=== PATIENT | male | born 1960 | race Caucasian/White ===

== ENCOUNTER 2019-10-25 11:21 | Emergency (ER) | payer BC ==
--- NOTE | 2019-10-25 12:23 | RAD ---
RIGHT HAND 3 VIEWS: Date: 10/25/19 HISTORY: Fall with injury. FINDINGS: Carpals appear intact. Mild degenerative change at the first carpometacarpal. Mild degenerative change at the first MCP joint. 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 No acute fracture identified. IMPRESSION: No evidence of acute fracture. POS: [facility]
--- NOTE | 2019-10-25 12:24 | RAD ---
LEFT FOREARM 2 VIEWS: Date: 10/25/19 HISTORY: Fall with injury. FINDINGS: Mild degenerative change at the elbow. No fracture identified. IMPRESSION: No evidence of acute fracture. POS: [facility]
--- NOTE | 2019-10-25 12:24 | RAD ---
RIGHT FOREARM 2 VIEWS: Date: 10/25/19 HISTORY: Fall with injury. FINDINGS: Degenerative changes at elbow and mild degenerative changes at wrist. No evidence of fracture. IMPRESSION: No acute fracture identified. POS: [facility]
--- NOTE | 2019-10-25 12:25 | RAD ---
LEFT HAND THREE VIEWS: HISTORY: Fall with injury. FINDINGS: Degenerative change at the first carpometacarpal joint. Mild degenerative change at the first MCP reji nt and IP joints. No evidence of acute fracture identified. IMPRESSION: No evidence of acute fracture. POS: [facility]
[2019-10-25] MEDS ORDERED: HYDROcodone/Acetaminophen 7.5/325 mg Tablet ONE (12:27)
== END 2019-10-25 14:24 | disposition home or self-care (01) ==
LOC: ERS 11:21
DX: M79.632 Pain in left forearm (principal); M79.631 Pain in right forearm; M79.642 Pain in left hand; M79.641 Pain in right hand; M25.532 Pain in left wrist; M25.531 Pain in right wrist; F17.210 Nicotine dependence, cigarettes, uncomplicated; I10 Essential (primary) hypertension; E78.00 Pure hypercholesterolemia, unspecified; Z79.899 Other long term (current) drug therapy

== ENCOUNTER 2020-07-13 14:11 | Emergency (ER) | payer BC ==
--- NOTE | 2020-07-13 15:18 | RAD ---
XR Knee Rt 4 View STANDARD HISTORY: Left knee pain FINDINGS: No fracture or dislocation is identified. Mild degenerative changes are present.
--- NOTE | 2020-07-13 15:20 | RAD ---
XR Shoulder Lt 3 View STANDARD HISTORY: Injury, left shoulder pain FINDINGS: No acute fracture or dislocation is identified. There are degenerative changes in the acromioclavicul ar joint.
--- NOTE | 2020-07-13 15:20 | RAD ---
XR Chest 1 View Portable HISTORY: Injury, right-sided chest pain COMPARISON: None FINDINGS: The heart size is normal. The lungs are well expanded without focal areas of consolidation, pneumothorax or pleural effusions. IMPRESSION: No radiographic evidence of acute cardiopulmonary process.
[2020-07-13] MEDS ORDERED: Ketorolac Tromethamine 30 MG/ML VIAL ONE (15:34)
== END 2020-07-13 16:35 | disposition home or self-care (01) ==
LOC: ERS 14:11
DX: S43.402A Unspecified sprain of left shoulder joint, initial encounter (principal); S83.91XA Sprain of unspecified site of right knee, initial encounter; S20.211A Contusion of right front wall of thorax, initial encounter; I10 Essential (primary) hypertension; E78.00 Pure hypercholesterolemia, unspecified; F17.210 Nicotine dependence, cigarettes, uncomplicated; Z79.899 Other long term (current) drug therapy; W17.89XA Other fall from one level to another, initial encounter
CPT/HCPCS: 71045; 96372; J1885